=== PATIENT | male | born 1970 | race Caucasian/White ===

== ENCOUNTER 2024-06-21 14:23 | Emergency (ER) | payer OTHER, SELFPAY ==
[2024-06-21 14:29] VITALS: BP 108/83
[2024-06-21 14:41] VITALS: BMI 25.1
[2024-06-21 15:07] LABS: % Basophils 0.7 % (0-2); % Eosinophils 3.5 % (0-6); % Immature Granulocytes 0.3 % (0-0.5); % Lymphocytes 32.8 % (20.5-51.1); % Monocytes 8.5 % (1.7-9.3); % Neutrophils 54.2 % (42.2-75.2); Absolute Basophils 0.1 10^3/uL (0-0.2); Absolute Eosinophils 0.2 10^3/uL (0-0.7); Absolute Lymphocytes 2.3 10^3/uL (1.2-3.4); Absolute Monocytes 0.6 10^3/uL (0.1-0.6); Absolute Neutrophils 3.7 10^3/uL (1.4-6.5); Hematocrit 43.1 % (39.0-52.0); Hemoglobin 14.3 g/dL (13.0-18.0); Mean Corp Hgb Conc. 33.2 g/dL (33.0-37.0); Mean Corpuscular Hgb 29.5 pg (27.0-31.0); Mean Corpuscular Volume 88.9 fL (80.0-94.0); Mean Platelet Volume 9.1 fL (7.4-10.4); Nucleated Red Blood Cells % 0 % (-); Platelet Count 283 10^3/uL (130-400); Red Blood Cell Count 4.85 10^6/uL (4.70-6.10); Red Cell Dist. Width 13.7 % (11.5-14.5); White Blood Cell Count 6.9 10^3/uL (4.8-10.8)
--- NOTE | 2024-06-21 15:20 | EDRN ---
Dr. Combs was in to see pt (ED resident).
[2024-06-21 15:26] VITALS: BP 144/99
[2024-06-21 15:30] LABS: ALT (SGPT) 21 U/L (0-50); AST (SGOT) 21 U/L (17-59); Albumin 4.1 g/dl (3.5-5.0); Alkaline Phosphatase 91 U/L (38-126); Blood Urea Nitrogen 16 mg/dl (9-20); Carbon Dioxide 31 mmol/L (22-30); Chloride 102 mmol/L (98-107); Estimated Creatinine Clearance 74 ml/min; Glucose 90 mg/dl (70-99); Lithium 0.8 mmol/L (0.6-1.2); Potassium 4.6 mmol/L (3.5-5.1); Sodium 139 mmol/L (135-145); Total Bilirubin 0.6 mg/dl (0.2-1.3); Total Protein 6.9 g/dl (6.3-8.2); eGFR > 60.00
--- NOTE | 2024-06-21 15:31 | EDRN ---
Dr. Torres in room w/pt.
--- NOTE | 2024-06-21 15:33 | ED.GENMED ---
History of Present Illness
<Lebron Torres DO - Last Filed: 06/21/24 16:15>
General
Chief Complaint: Change in Mental Status
Source: patient
Exam Limitations: none
Time Seen by Provider: 06/21/24 14:36
Nursing documentation reviewed up to this point in time: agreed with
History of Present Illness
History of Present Illness:
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
<Nikko Combs DO, Resident - Last Filed: 06/21/24 15:54>
History of Present Illness
History of Present Illness:
54M past medical history significant for bipolar disorder, HIV on Haart, presents from retirement with manic thoughts of 2 days duration. Patient states that he feels 'great' he endorses talkativeness and grandiose ideas. During interview patient was
extremely talkative, expressed tangential thinking and flight of ideas. Patient denies issues sleeping. He says that he has had manic episodes in the past And he takes lithium daily at retirement. Patient is afebrile, does not have a white count and
his vitals are stable.
Past History
<Lebron Torres DO - Last Filed: 06/21/24 16:15>
Social History
Living: snf
Employment: Not employed
<Nikko Combs DO, Resident - Last Filed: 06/21/24 15:54>
Past History
ED Past Medical History: Psychiatric (Bipolar disorder, ADHD) and Other (HIV on HAART)
Patient has exhibited threatening behavior?: No
Social History
Drug: Narcotics (Previous methamphetamine use)
Family History
Family History: Unable to obtain
Review of Systems
<Lebron Torres DO - Last Filed: 06/21/24 16:15>
Review of Systems
All Other Systems: Not applicable
Constitutional: Denies fever or sleep disturbance
<Nikko Combs DO, Resident - Last Filed: 06/21/24 15:54>
Review of Systems
Respiratory: Reports no symptoms
Cardiac: Reports no symptoms
ABD/GI: Reports no symptoms
Neurological: Reports no symptoms
Phy Exam
<Nikko Combs DO, Resident - Last Filed: 06/21/24 15:54>
General Physical Exam
General Presentation: well appearing
General Skin: warm and dry
General Habitus: normal
General Mental: alert and other (Extremely talkative, flight of ideas, tangential thinking)
Pulmonary Exam
Pulmonary Exam: lungs clear and no respiratory distress
Gastrointestinal Exam
Gastrointestinal Exam: non tender, soft and non distended
Neurological Exam
Neurological Exam: alert, oriented x3, CN II-XII intact, no motor deficits, no sensory deficits and speech normal
Psychiatric Exam
Psychiatric Exam: other (Extremely talkative, demonstrating flight of ideas and grandiose thinking. Also expressing tangential thinking.)
Course
<Lebron Torres DO - Last Filed: 06/21/24 16:15>
Orders/Labs/Results
Orders:
Orders
06/21/24 14:45
Cardiac Monitoring- Treatment ONCE
IV Insert/Care/Rem.- Treatment PRN
06/21/24 14:51
Complete Blood Count/With Diff Urgent
Comprehensive Metabolic Panel Urgent
[facility]
06/21/24 15:28
Lorazepam [Ativan] 1 mg PO NOW STA
Abnormal Lab Results
06/21/24
14:51
Carbon Dioxide 31 H mmol/L
(22-30)
06/21/24 14:51
06/21/24 14:51
Vital Signs
Initial and Last Documented VS:
Initial Vital Signs
Temp Pulse Resp BP Pulse Ox
97.5 F 58 16 108/83 100
06/21/24 14:29 06/21/24 14:29 06/21/24 14:29 06/21/24 14:29 06/21/24 14:29
Last Documented Vital Signs
Temp Pulse Resp BP Pulse Ox
97.5 F 54 15 130/97 98
06/21/24 14:29 06/21/24 16:00 06/21/24 16:00 06/21/24 16:00 06/21/24 16:00
<Nikko Combs DO, Resident - Last Filed: 06/21/24 15:54>
Orders/Labs/Results
Orders:
Orders
06/21/24 14:45
Cardiac Monitoring- Treatment ONCE
IV Insert/Care/Rem.- Treatment PRN
06/21/24 14:51
Complete Blood Count/With Diff Urgent
Comprehensive Metabolic Panel Urgent
[facility]
06/21/24 15:28
Lorazepam [Ativan] 1 mg PO NOW STA
Abnormal Lab Results
06/21/24
14:51
Carbon Dioxide 31 H mmol/L
(22-30)
06/21/24 14:51
06/21/24 14:51
Vital Signs
Initial and Last Documented VS:
Initial Vital Signs
Temp Pulse Resp BP Pulse Ox
97.5 F 58 16 108/83 100
06/21/24 14:29 06/21/24 14:29 06/21/24 14:29 06/21/24 14:29 06/21/24 14:29
Last Documented Vital Signs
Temp Pulse Resp BP Pulse Ox
97.5 F 54 15 130/97 98
06/21/24 14:29 06/21/24 16:00 06/21/24 16:00 06/21/24 16:00 06/21/24 16:00
<Lebron Torres DO - Last Filed: 06/21/24 16:15>
MDM/Problems Addressed
Chronic conditions affecting care: Immunosuppressed and Psychiatric illness
Acute Exacerbation and/or Progression of Chronic Illness: Immunosuppressed and Psychiatric illness
<Nikko Combs DO, Resident - Last Filed: 06/21/24 15:54>
MDM/Problems Addressed
Differential Diagnosis Includes:
Acute manic episode, [employer] infection, methamphetamine use
MDM/Problems Addressed:
#Acute manic episode versus [employer] infection versus methamphetamine use
Patient has history of BPD, currently takes lithium as a mood stabilizer
Patient unsure if taking lithium regularly, however lithium levels returned within normal limits in ED
Patient extremely talkative, expressing tangential thought, grandiose thoughts and flight of ideas, denies sleep disturbances
Symptoms are consistent with acute manic episode
Patient is stable, currently not endorsing any suicidal ideations or threats to himself or others
Will give single dose of Ativan in the emergency department for symptoms
T[employer] infection less likely, patient does have HIV, however he reports being undetectable and taking HAART regularly. He is afebrile and white count is within normal limits
Patient reports past history of methamphetamine abuse
Suspicion for acute methamphetamine use is low as patient's vitals are within normal limits and he reports not having access to methamphetamine while in retirement.
<Lebron Torres DO - Last Filed: 06/21/24 16:15>
*Pulse Oximetry
Patient hypoxic: no
*Critical Care Note
Total Time (30-74mins, 75-104mins- exclusive of procedures): Not Applicable
ED Attending Note
<Lebron Torres DO - Last Filed: 06/21/24 16:15>
ED Attending Note
Patient seen and examined by attending physician: Yes
I performed a history and physical exam of patient and discussed management with resident, I reviewed resident's note and agree with documented findings and plan of care.: Yes
ED Attending Note:
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
stable to go back to [facility]
-
Portions of this chart may have been created with voice recognition software.� Occasional wrong word or��sound alike� substitutions may have occurred due to the inherent limitations of voice recognition software.
Discharge Plan
Departure
Referrals:
[facility] [Family Provider] -
Interventions
Interventions:
*Risk Screen - Suicide Last Done: 06/21/24 14:40
*General Assessment Last Done: 06/21/24 14:40
*Neglect/Abuse Screening Last Done: 06/21/24 14:40
ED- Fall Risk Assessment Last Done: 06/21/24 14:50
*ED COVID-19 Vaccine History Last Done: 06/21/24 14:41
ED- Pulmonary Assessment Last Done: 06/21/24 15:28
ED- Neurological Assessment Last Done: 06/21/24 14:50
ED- Cardiac Assessment Last Done: 06/21/24 15:28
ED Swallowing Screen Last Done: 06/21/24 15:28
Discharge Date and Time
Print Language: [place]
[2024-06-21] MEDS: ATIVAN 1 MG PO (15:43)
[2024-06-21 16:00] VITALS: BP 130/97
--- NOTE | 2024-06-21 16:40 | EDRN ---
Pt administered boxed lunch prior to leaving per request. Pt will leave post eating.
== END 2024-06-21 16:55 ==
LOC: EMR 14:23
PROVIDERS: Student in an Organized Health Care Education/Training Program; EMERGENCY PHYSICIAN Emergency Medicine
DX: F99 Mental disorder, not otherwise specified (principal); F31.9 Bipolar disorder, unspecified; Z21 Asymptomatic human immunodeficiency virus [HIV] infection status; Z79.899 Other long term (current) drug therapy; D84.81 Immunodeficiency due to conditions classified elsewhere
CPT/HCPCS: 99283; 80053; 80178; 85025